=== PATIENT | male | born 1965 | race Caucasian/White ===

== ENCOUNTER 2017-09-29 23:48 | Observation (INO) | payer OTHER ==
[~2017-09-29] VITALS: Ht 175.3 cm; Wt 65.0 kg
[~2017-09-29 23:48] MED LIST: CYCL-36 PO; DIFL500T PO
[2017-09-29] MEDS ORDERED: IOHEXOL 350 MG/ML 10 ML VIAL (for RAD DIAG) IVCONTRAST ONE (23:49)
[2017-09-29 23:54] VITALS: BP 164/96; PULSE 67; RESP 15; TEMP 98.3; O2SAT 99
--- NOTE | 2017-09-30 00:10 | PD ---
HPI Chief Complaint: Fall Time Seen by Provider: 23:56 Travel History International Travel<30 days: No Contact w/Intl Traveler<30days: No Traveled to known affect area: No History of Present Illness HPI The patient is a 51 year old male who presents to the [facility] emergency department with a history of reportedly falling at work earlier today around 2 PM. The patient reports that he was up on a ladder. The patient reports that he was 3-4 steps up on a ladder and stretching to drill. He reports that he fell backwards onto his back. He denies hitting his head or losing consciousness. He denies having any numbness or tingling to his extremities. He reports that he went home from work and took BC powder. He reports that the pain became worse, therefore he called ambulance services. The patient was brought in by ambulance services in full C-spine immobilization on a backboard. He denies having any chest pain, chest pressure, or shortness of breath. He denies having any extremity injuries, however he reports that his back pain radiates down into bilateral legs down to the knees. He denies having any difficulty urinating or hematuria. He denies having any abdominal pain. On review of systems otherwise, he denies having any recent fevers, cough, congestion, vomiting, diarrhea, urinary symptoms, weakness of his extremities, difficulty with word finding ability, or facial droop. [facility] Past Medical History Narrative Medical The patient's past medical history is reportedly none. Medical History: Denies Significant Hx Past Surgical History Surgical History: No Previous Surgery Social History Alcohol Use: Yes (occasionally) Tobacco Use: Yes (one half pack per day) Substance Use: No Allergies-Medications (Allergen,Severity, Reaction): Coded Allergies: No Known Allergies (Verified Allergy, Unknown, 09/29/17) Reported Meds & Prescriptions Reported Meds & Active Scripts Active No Active Prescriptions or Reported Medications Review of Systems Except as stated in HPI: all other systems reviewed are Neg General / Constitutional: No: Fever Eyes: No: Visual changes HENT: No: Headaches Cardiovascular: No: Chest Pain or Discomfort Respiratory: No: Shortness of Breath Gastrointestinal: No: Abdominal Pain Genitourinary: No: Dysuria Musculoskeletal: Positive: Myalgias, Arthralgias, Pain Skin: No Rash Neurologic: No: Weakness, Focal Abnormalities, Change in Mentation, Slurred Speech, Sensory Disturbance Psychiatric: No: Depression Endocrine: No: Polydipsia Hematologic/Lymphatic: No: Easy Bruising Physical Exam Narrative General: The patient is a well-developed well-nourished male in no acute distress. The patient is brought in on a back board in full c-spine immobilization by emergency services. Head and Neck exam: Head is normocephalic atraumatic. No facial bone tenderness or increased facial bone mobility noted on palpation. Eyes: EOMI, pupils are equal round and reactive to light. Nose: Midline septum with pink mucous membranes Mouth: Dentition unremarkable. Moist mucus membranes. Posterior oropharynx is not erythematous. No tonsillar hypertrophy. Uvula midline. Airway patent. Neck: The patient is immobilized in a cervical collar. No tracheal deviation. The trachea appears midline. Cardiovascular: Regular rate and rhythm without murmurs, gallops, or rubs. No pulse deficit to the extremities. Lungs: Clear to auscultation bilaterally. No wheezes, rhonchi, or rales. No chest wall tenderness to palpation. No erythema or ecchymosis noted. No crepitus , step off, or flail segment noted. Abdomen: Soft, without tenderness to palpation in all 4 quadrants of the abdomen. No guarding, rebound, or rigidity. No erythema or ecchymosis noted. Extremities: No instability or pain noted on pelvic rock. No clubbing, cyanosis , or edema. 2+ pulses in all 4 extremities. No extremity tenderness or deformity noted on palpation or passive/ active range of motion. Back: The patient was log rolled off of the back board. The patient reports having spinous process tenderness from the mid thoracic spine all the way down over the sacrum. No stepoff or crepitus noted. No costovertebral angle tenderness to palpation. No erythema or ecchymosis. Neurologic Exam: Cranial nerves 2-12 were intact on exam. Strength is 5/5 in all 4 extremities. No sensory deficits noted. The patient has a positive straight leg raise bilaterally with pain in his back with raising bilateral legs. The patient specifically reports having pain in the posterior left hip with lifting his left leg. Skin Exam: No rash noted. Intact skin that is warm and dry. Data Data Last Documented VS Vital Signs Date Time Temp Pulse Resp B/P (MAP) Pulse Ox O2 Delivery O2 Flow Rate FiO2 09/29/17 23:54 98.3 67 15 164/96 (118) [address] Cerv Spine W/O Contrast (09/29/17 23:58) Ct Thor Spine W/O Contrast (09/29/17 23:58) Ct Lumb Spine W/O Contrast (09/29/17 23:58) Complete Blood Count With Diff (09/29/17 23:58) Basic Metabolic Panel (Bmp) (09/29/17 23:58) Urinalysis - C+S If Indicated (09/29/17 23:58) Chest, Single Ap (09/29/17 23:58) Pelvis, Ap Only (Routine) (09/29/17 23:58) Prothrombin Time / Inr (Pt) (09/29/17 23:58) Act Partial Throm Time (Ptt) (09/29/17 23:58) Sodium Chlor 0.9% 1000 Ml Inj (Ns 1000 M (09/30/17 01:00) Ondansetron Inj (Zofran Inj) (09/30/17 01:00) Ketorolac Inj (Toradol Inj) (09/30/17 01:00) Morphine Inj (Morphine Inj) (09/30/17 02:00) Ondansetron Inj (Zofran Inj) (09/30/17 02:00) Ct Abd/Pel W Iv Contrast(Rout) (09/30/17 02:02) Urine Culture (09/30/17 02:20) Levofloxacin 500 Mg Premix Inj (Levaquin (09/30/17 02:45) Admit Order (Ed Use Only) (09/30/17 02:46) Labs Laboratory Tests Test 09/30/17 00:12 09/30/17 02:20 White Blood Count 18.6 TH/MM3 Red Blood Count 4.24 MIL/MM3 Hemoglobin 13.8 GM/DL Hematocrit 40.1 % Mean Corpuscular Volume 94.5 FL Mean Corpuscular Hemoglobin 32.5 PG Mean Corpuscular Hemoglobin Concent 34.4 % Red Cell Distribution Width 12.9 % Platelet Count 215 TH/MM3 Mean Platelet Volume 9.0 FL Neutrophils (%) (Auto) 82.0 % Lymphocytes (%) (Auto) 7.1 % Monocytes (%) (Auto) 10.7 % Eosinophils (%) (Auto) 0.1 % Basophils (%) (Auto) 0.1 % Neutrophils # (Auto) 15.3 TH/MM3 Lymphocytes # (Auto) 1.3 TH/MM3 Monocytes # (Auto) 2.0 TH/MM3 Eosinophils # (Auto) 0.0 TH/MM3 Basophils # (Auto) 0.0 TH/MM3 CBC Comment DIFF FINAL Differential Comment Prothrombin Time 11.9 SEC Prothromb Time International Ratio 1.1 RATIO Activated Partial Thromboplast Time 25.2 SEC Blood Urea Nitrogen 18 MG/DL Creatinine 0.63 MG/DL Random Glucose 93 MG/DL Calcium Level 9.8 MG/DL Sodium Level 130 MEQ/L Potassium Level 4.3 MEQ/L Chloride Level 97 MEQ/L Carbon Dioxide Level 24.7 MEQ/L Anion Gap 8 MEQ/L Estimat Glomerular Filtration Rate 135 ML/MIN Urine Color YELLOW Urine Turbidity HAZY Urine pH 6.0 Urine Specific [place] 1.020 Urine Protein TRACE mg/dL Urine Glucose (UA) NEG mg/dL Urine Ketones NEG mg/dL Urine Occult Blood NEG Urine Nitrite POS Urine Bilirubin NEG Urine Urobilinogen 2.0 MG/DL Urine Leukocyte Esterase TRACE Urine RBC 4 /hpf Urine WBC 4 /hpf Urine Squamous Epithelial Cells <1 /hpf Urine Amorphous Sediment RARE Urine Mucus FEW /lpf Microscopic Urinalysis Comment CULTURE INDICATED MDM Medical Decision Making Medical Screen Exam Complete: Yes Emergency Medical Condition: Yes Medical Record Reviewed: Yes Interpretation(s) Last Impressions Abdomen/Pelvis CT 09/30/17201 Signed Impressions: Service Date/Time: Saturday, September 30, 2017 02:38 - CONCLUSION: 1. No acute traumatic abnormality seen in the abdomen or pelvis. 2. Benign-appearing cysts of the liver and both kidneys. 3. Upper limits of normal size spleen. 4. Several lytic areas of the bilateral iliac bones, nonspecific but most likely benign. 5. 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 Dada Herring MD Thoracic Spine CT [id number]/29/[id number] Signed Impressions: Service Date/Time: Saturday, September 30, 2017 00:35 - CONCLUSION: Intact thoracic spine. Dada Herring MD Pelvis X-Ray 09/29/[id number] Signed Impressions: Service Date/Time: Saturday, September 30, 2017 00:24 - CONCLUSION: Intact pelvis. Dada Herring MD Lumbar Spine CT [id number]/29/172357 Signed Impressions: Service Date/Time: Saturday, September 30, 2017 00:35 - CONCLUSION: 1. Intact lumbar spine. 2. Degenerative changes as above. 3. Scattered lytic areas of the visualized iliac bones, nonspecific. No similar findings are seen of the spine so malignancy such as multiple myeloma considered unlikely. Clinical correlation and outpatient whole-body bone scan suggested. Dada Herring MD Chest X-Ray 09/29/[id number] Signed Impressions: Service Date/Time: Saturday, September 30, 2017 00:26 - CONCLUSION: No evidence of acute cardiopulmonary disease. Dada Herring MD Cervical Spine CT 09/29/[id number] Signed Impressions: Service Date/Time: Saturday, September 30, 2017 00:31 - CONCLUSION: Intact cervical spine. Degenerative changes of C5/C6 and C6/C7. Dada Herring MD Differential Diagnosis Spinal fracture, versus ligamentous injury, versus musculoskeletal strain, versus radiculopathy Narrative Course During the course of the patients emergency department visit, the patients history, examination, and differential diagnosis were reviewed with the patient. The patient was placed on a cardiac cath lab manager with oximetry and frequent blood pressure monitoring. The patient had IV access obtained and blood work sent for analysis. A CT scan of the C-spine, T-spine, L-spine was ordered. The patient was initially provided Toradol 15 mg IV for pain. The patient continued to have pain and was given normal saline 1 L IV fluid bolus, Zofran 4 mg IV, morphine 4 mg IV. The patients laboratory studies were reviewed and remarkable for a white count of 18.6, hemoglobin 13.8, platelets 2:15 with 82 neutrophils, monocytes 10.7. Basic metabolic profile is remarkable for sodium of 130, chloride 97, PT 11.9, PTT 25.2, urinalysis shows positive nitrite, trace leukocyte esterase, RBCs 4, 4 WBCs, culture indicated. The patient was given Levaquin 750 mg IV 1. Radiology studies were reviewed and remarkable for CT scan of the C-spine, T- spine, L-spine showed no acute bony abnormality, however the patient is noted to have scattered lytic areas on the iliac bones bilaterally. Chest x-ray shows no acute abnormality, Pelvis x-ray shows no acute abnormality. 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 Due to intractable pain the patient will be admitted to the hospital. The patients results were discussed with the patient, including the plan of care. I explained that further testing and/ or monitoring is indicated based on the patients history, examination, and/ or laboratory findings. Therefore, I recommended admission for additional evaluation. The patient expressed understanding and was agreeable with this plan. The patient was admitted to the hospital in stable condition and sent to a bed under the care of [facility]. Physician Communication Physician Communication The patient's case including history, pertinent physical examination findings, and laboratory studies were discussed with Dr. Rivera. It was agreed that the patient would be admitted to the [facility] service. Diagnosis Primary Impression: Intractable back pain Additional Impressions: Fall Qualified Codes: W19.XXXA - Unspecified fall, initial encounter Lytic bone lesions on xray Urinary tract infection Qualified Codes: N39.0 - Urinary tract infection, site not specified; R31.9 - Hematuria, unspecified Admitting Information Admitting Physician Requests: Observation Scripts No Active Prescriptions or Reported Meds Mojgan Eldridge MD Sep 30, 2017 00:10
[2017-09-30 00:21] LABS: AUTOMATED NEUTROPHIL # 15.3 TH/MM3 (1.8-7.7); BASOPHIL % 0.1 % (0.0-2.0); EOSINOPHIL % 0.1 % (0.0-4.0); HEMATOCRIT 40.1 % (39.0-51.0); HEMO FLAGS DIFF FINAL; LYMPH % 7.1 % (9.0-44.0); LYMPHOCYTE # 1.3 TH/MM3 (1.0-4.8); MEAN CELL VOLUME 94.5 FL (80.0-100.0); MEAN CORPUSCULAR HEMOGLOBIN 32.5 PG (27.0-34.0); MEAN CORPUSCULAR HGB CONC 34.4 % (32.0-36.0); MONO % 10.7 % (0.0-8.0); PLATELET COUNT 215 TH/MM3 (150-450); RED BLOOD COUNT 4.24 MIL/MM3 (4.50-5.90); RED CELL DISTRIBUTION WIDTH 12.9 % (11.6-17.2); WHITE BLOOD COUNT 18.6 TH/MM3 (4.0-11.0)
[2017-09-30 00:35] LABS: APTT (PATIENT) 25.2 SEC (24.3-30.1); INTERNATIONAL NORMALIZED RATIO 1.1 RATIO; PROTHROMBIN TIME - PATIENT 11.9 SEC (9.8-11.6)
[2017-09-30 00:45] LABS: BICARBONATE 24.7 MEQ/L (21.0-32.0); POTASSIUM 4.3 MEQ/L (3.5-5.1)
--- NOTE | 2017-09-30 00:48 | RADRPT ---
EXAM DATE/TIME: 09/30/2017 00:24 [facility] COMPARISON: No previous studies available for comparison. INDICATIONS : Fall at work earlier today pain in back. MEDICAL HISTORY : None. SURGICAL HISTORY : None. ENCOUNTER: Initial ACUITY: 1 day PAIN SCORE: 5/10 LOCATION: Bilateral pelvis FINDINGS: A single frontal view of the pelvis demonstrates no evidence of fracture. The bony pelvic ring is in tact. Bony mineralization is normal. The soft tissues are intact. There is mild to moderate right and moderate to severe left hip ost or arthritis. CONCLUSION: Intact pelvis. Dada Herring MD on September 30, 2017 at 0:46 Board Certified Radiologist. This report was verified electronically.
--- NOTE | 2017-09-30 00:49 | RADRPT ---
EXAM DATE/TIME: 09/30/2017 00:26 [facility] COMPARISON: No previous studies available for comparison. INDICATIONS : Fall earlier today at work. Chest and back pain. MEDICAL HISTORY : None. SURGICAL HISTORY : None. ENCOUNTER: Initial ACUITY: 1 day PAIN SCORE: 0/10 LOCATION: Bilateral chest FINDINGS: A single view of the chest demonstrates the lungs to be symmetrically aerated without evidence of mas s, infiltrate or effusion. The cardiomediastinal contours are unremarkable. Osseous structures are intact. CONCLUSION: No evidence of acute cardiopulmonary disease. Dada Herring MD on September 30, 2017 at 0:47 Board Certified Radiologist. This report was verified electronically.
--- NOTE | 2017-09-30 00:56 | RADRPT ---
EXAM DATE/TIME: 09/30/2017 00:31 [facility] COMPARISON: No previous studies available for comparison. INDICATIONS : Trauma, fell from ladder. RADIATION DOSE: 32.93 CTDIvol (mGy) MEDICAL HISTORY : None SURGICAL HISTORY : None. ENCOUNTER: Initial ACUITY: 1 day PAIN SCALE: 3/10 LOCATION: thoracic TECHNIQUE: Volumetric scanning of the cervical spine was performed. Multiplanar reconstructions in the sagittal, coronal and oblique axial planes were performed. Using automated exposure control and adjustment o f the mA and/or kV according to patient size, radiation dose was kept as low as reasonably achievable to obtain optimal diagnostic quality images. DICOM format image data is available electronically f or review and comparison. FINDINGS: No fracture or subluxation of the cervical spine paravertebral bodies have normal height. Prevertebra l soft tissues are within normal limits. Moderate to severe disc space narrowing with right greater left uncovertebral and facet osteoarthriti s seen at C6/C7. There is moderate right and mild left foraminal stenosis. Similar but milder changes are seen at C5/C6 with mild bilateral foraminal stenosis. CONCLUSION: Intact cervical spine. Degenerative changes of C5/C6 and C6/C7. Dada Herring MD on September 30, 2017 at 0:51 Board Certified Radiologist. This report was verified electronically.
--- NOTE | 2017-09-30 00:59 | RADRPT ---
EXAM DATE/TIME: 09/30/2017 00:35 [facility] COMPARISON: No previous studies available for comparison. INDICATIONS : Trauma, fell from ladder. RADIATION DOSE: 33.82 CTDIvol (mGy) ; Combined studies - Thoracic Spine/Lumbar Spine MEDICAL HISTORY : None SURGICAL HISTORY : None. ENCOUNTER: Initial ACUITY: 1 day PAIN SCALE: 3/10 LOCATION: thoracic TECHNIQUE: Volumetric scanning of the thoracic spine was performed. Multiplanar reconstructions in the sagittal , coronal and oblique axial planes were performed. Using automated exposure control and adjustment o f the mA and/or kV according to patient size, radiation dose was kept as low as reasonably achievable to obtain optimal diagnostic quality images. DICOM format image data is available electronically f or review and comparison. FINDINGS: The vertebral bodies of the thoracic spine are in normal alignment without evidence of subluxation. Vertebral body height is maintained. No fractures are seen. There is very mild bilateral facet and costovertebral osteoarthritis at essentially all levels. Minim al disc space narrowing with anterior osseous ridging noted at T8/T9, T9/T10 and T10/T11. CONCLUSION: Intact thoracic spine. Dada Herring MD on September 30, 2017 at 0:55 Board Certified Radiologist. This report was verified electronically.
[2017-09-30] MEDS ORDERED: ONDANSETRON HCL 4 MG/2 ML VIAL IV ONE (01:00)
[2017-09-30] MEDS ORDERED: KETOROLAC TROMETHAMINE 30 MG/ML (IVP) VIAL IV PUSH ONE (01:00)
[2017-09-30] MEDS ORDERED: SODIUM CHLOR 0.9% 1000 ML INJ 1,000 ML IV ONE (01:00)
--- NOTE | 2017-09-30 01:07 | RADRPT ---
EXAM DATE/TIME: 09/30/2017 00:35 [facility] COMPARISON: No previous studies available for comparison. INDICATIONS : Trauma, fell from ladder. RADIATION DOSE: 33.82 CTDIvol (mGy) ; Combined studies - Thoracic Spine/Lumbar Spine MEDICAL HISTORY : None SURGICAL HISTORY : None. ENCOUNTER: Initial ACUITY: 1 day PAIN SCALE: 4/10 LOCATION: lumbar TECHNIQUE: Volumetric scanning of the lumbar spine was performed. Multiplanar reconstructions in the sagittal, coronal and oblique axial planes were performed. Using automated exposure control and adjustment of the mA and/or kV according to patient size, radiation dose was kept as low as reasonably achievable t o obtain optimal diagnostic quality images. DICOM format image data is available electronically for review and comparison. FINDINGS: No fracture or subluxation of the lumbar spine. Vertebral bodies have normal height. Moderate bilateral facet osteoarthritis seen at essentially all levels. There is severe disc space na rrowing with vacuum phenomena and a broad posterior disc protrusion at L5/S1. There is moderate left foraminal stenosis. Study shows multiple well-circumscribed lucencies of the visualized iliac bones measuring up to 12 mm in size. CONCLUSION: 1. Intact lumbar spine. 2. Degenerative changes as above. 3. Scattered lytic areas of the visualized iliac bones, nonspecific. No similar findings are seen of the spine so malignancy such as multiple myeloma considered unlikely. Clinical correlation and outpat ient whole-body bone scan suggested. Dada Herring MD on September 30, 2017 at 1:00 Board Certified Radiologist. This report was verified electronically.
[2017-09-30] MEDS ORDERED: MORPHINE SULFATE 4 MG/ML INJ IV PUSH ONE (02:00)
[2017-09-30] MEDS ORDERED: ONDANSETRON HCL 4 MG/2 ML VIAL IV PUSH ONE (02:00)
[2017-09-30 02:30] LABS: BLOOD, URINE NEG (NEG); COMMENT (UR) CULTURE INDICATED; CULTURE IF INDICATED CULTURE INDICATED; GLUCOSE,URINE NEG (NEG); KETONE, URINE NEG (NEG); MUCUS URINE FEW /lpf (OCC); NITRITE,URINE POS (NEG); SQUAMOUS EPITHELIAL CELL URINE <1 /hpf (0-5); URINE COLOR YELLOW (YELLW/STRAW)
[2017-09-30] MEDS ORDERED: LEVOFLOXACIN 500 MG PREMIX INJ 100 ML IV ONE (02:45)
[2017-09-30] MEDS ORDERED: IOHEXOL 350 MG/ML 10 ML VIAL (for RAD DIAG) IVCONTRAST ONE (02:50)
--- NOTE | 2017-09-30 03:29 | RADRPT ---
EXAM DATE/TIME: 09/30/2017 02:38 [facility] COMPARISON: CT LUMBAR SPINE W/O CONTRAST, September 30, 2017, 0:35. INDICATIONS : Trauma, fell from ladder. IV CONTRAST: 80 cc Omnipaque 350 (iohexol) IV ORAL CONTRAST: No oral contrast ingested. RADIATION DOSE: 6.64 CTDIvol (mGy) MEDICAL HISTORY : None SURGICAL HISTORY : None. ENCOUNTER: Initial ACUITY: 1 day PAIN SCALE: 6/10 LOCATION: Bilateral lower back TECHNIQUE: Volumetric scanning of the abdomen and pelvis was performed. Using automated exposure control and ad justment of the mA and/or kV according to patient size, radiation dose was kept as low as reasonably achievable to obtain optimal diagnostic quality images. DICOM format image data is available electro nically for review and comparison. FINDINGS: LOWER LUNGS: The visualized lower lungs are clear. LIVER: A couple subcentimeter cysts are seen of the liver.. There is no dilation of the biliary tree. No c alcified gallstones. SPLEEN: 7.7 x 10.8 x 13.0 cm. No laceration or focal lesion. PANCREAS: Within normal limits. KIDNEYS: 2.6 cm left mid zone cyst. There is an 8mm mid zone cyst on the right. ADRENAL GLANDS: Within normal limits. VASCULAR: There is no aortic aneurysm. BOWEL/MESENTERY: The stomach, small bowel, and colon demonstrate no acute abnormality. There is no free intraperitone al air or fluid. ABDOMINAL WALL: Within normal limits. RETROPERITONEUM: There is no lymphadenopathy. BLADDER: No wall thickening or mass. REPRODUCTIVE: Within normal limits. INGUINAL: There is no lymphadenopathy or hernia. MUSCULOSKELETAL: Visualized osseous structures are intact. A few scattered lucencies up to 12 mm in size are seen of t he visualized iliac bones. No similar findings are seen of other visualized osseous structures. Chron ic appearing avascular necrosis seen of both femoral heads with localized flattening/collapse and the re is moderate to severe bilateral hip osteoarthritis. CONCLUSION: 1. No acute traumatic abnormality seen in the abdomen or pelvis. 2. Benign-appearing cysts of the liver and both kidneys. 3. Upper limits of normal size spleen. 4. Several lytic areas of the bilateral iliac bones, nonspecific but most likely benign. 5. 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 Dada Herring MD on September 30, 2017 at 3:23 Board Certified Radiologist. This report was verified electronically.
[2017-09-30 05:53] VITALS: BP 161/78; PULSE 64; RESP 18; TEMP 98.4; O2SAT 98
[2017-09-30] MEDS ORDERED: ACETAMINOPHEN 325 MG TAB PO PRN (06:00)
[2017-09-30] MEDS ORDERED: SENNOSIDES 8.6 MG TAB PO PRN (06:00)
[2017-09-30] MEDS ORDERED: MAGNESIUM HYDROXIDE SUSP 30 ML CUP PO PRN (06:00)
[2017-09-30] MEDS ORDERED: LACTULOSE SYRUP 20 GM/30 ML CUP PO PRN (06:00)
[2017-09-30] MEDS ORDERED: ONDANSETRON HCL 4 MG/2 ML VIAL IVP PRN (06:00)
[2017-09-30] MEDS ORDERED: NALOXONE HCL 0.4 MG/ML AMP IV PUSH PRN (06:00)
[2017-09-30] MEDS ORDERED: BISACODYL 10 MG SUPP RECTAL PRN (06:00)
[2017-09-30] MEDS ORDERED: SODIUM CHLORIDE 0.9% FLUSH 10 ML FLUSH IV FLUSH PRN (06:00)
--- NOTE | 2017-09-30 06:08 | HHI.HP ---
[facility] Primary Care Physician No Primary Care Physician Admission Diagnosis intractable back pain status post fall, lytic lesions, UTI Diagnoses: Travel History International Travel<30 Days: No Contact w/Intl Traveler <30 Da: No Traveled to Known Affected Are: No History of Present Illness 51-year-old male presents to the emergency department after a fall off a ladder at work. The patient reports he was standing on a ladder when he slipped and fell approximately 3-4 feet landing directly on his back. He denies hitting his head. Denies loss of consciousness. Reports severe pain in his lower back/ sacral area. CT of the cervical, thoracic and lumbar spine with no spinal abnormalities. CT of the lumbar spine showed scattered lytic areas of the iliac bones. CT of the abdomen and pelvis showed benign-appearing cysts of the liver and both kidneys. Several lytic areas of bilateral iliac bones, nonspecific. Patient also noted to have a leukocytosis of 18.6 and a UA consistent with urinary tract infection. Patient denies dysuria. Review of Systems Denies fever or chills Denies blurry vision, otorrhea, rhinorrhea Denies sore throat and cough No chest pain, palpitations, shortness of breath No abdominal pain Denies constipation/diarrhea/nausea/vomiting Denies muscle pain/weakness No rashes Past Family Social History Past Medical History None Patient has no primary care provider and has not been seen by a physician recently Past Surgical History None Reported Medications None Allergies: Coded Allergies: No Known Allergies (Verified Allergy, Unknown, 09/29/17) Family History Denies family history of heart disease or diabetes mellitus Social History Smokes approximately one third pack per day 30 years. Occasional alcohol, occasional marijuana. Denies other illicit drugs. Physical Exam Vital Signs Vital Signs Date Time Temp Pulse Resp B/P (MAP) Pulse Ox O2 Delivery O2 Flow Rate FiO2 09/30/17 05:53 98.4 64 18 161/78 (105) 98 09/29/17 23:54 98.3 67 15 164/96 (118) 99 Physical Exam GENERAL: male lying in bed SKIN: No rashes, ecchymoses or lesions. Cool and dry. HEAD: Atraumatic. Normocephalic. No temporal or scalp tenderness. EYES: Pupils equal round and reactive. Extraocular motions intact. No scleral icterus. No injection or drainage. ENT: Nose without bleeding, purulent drainage or septal hematoma. Throat without erythema, tonsillar hypertrophy or exudate. Uvula midline. Airway patent. NECK: Trachea midline. No JVD or lymphadenopathy. Supple, nontender, no meningeal signs. CARDIOVASCULAR: Regular rate and rhythm without murmurs, gallops, or rubs. RESPIRATORY: Clear to auscultation. Breath sounds equal bilaterally. No wheezes , rales, or rhonchi. GASTROINTESTINAL: Abdomen soft, non-tender, nondistended. No hepato-splenomegaly , or palpable masses. No guarding. MUSCULOSKELETAL: Extremities without clubbing, cyanosis, or edema. No joint tenderness, effusion, or edema noted. No calf tenderness. Negative Homans sign bilaterally. Tenderness to palpation along the lumbar spine and sacrum. NEUROLOGICAL: Awake and alert. Cranial nerves II through XII intact. Motor and sensory grossly within normal limits. Five out of 5 muscle strength in all muscle groups. Normal speech. Laboratory Laboratory Tests Test 09/30/17 00:12 09/30/17 02:20 White Blood Count 18.6 Red Blood Count 4.24 Hemoglobin 13.8 Hematocrit 40.1 Mean Corpuscular Volume 94.5 Mean Corpuscular Hemoglobin 32.5 Mean Corpuscular Hemoglobin Concent 34.4 Red Cell Distribution Width 12.9 Platelet Count 215 Mean Platelet Volume 9.0 Neutrophils (%) (Auto) 82.0 Lymphocytes (%) (Auto) 7.1 Monocytes (%) (Auto) 10.7 Eosinophils (%) (Auto) 0.1 Basophils (%) (Auto) 0.1 Neutrophils # (Auto) 15.3 Lymphocytes # (Auto) 1.3 Monocytes # (Auto) 2.0 Eosinophils # (Auto) 0.0 Basophils # (Auto) 0.0 CBC Comment DIFF FINAL Differential Comment Prothrombin Time 11.9 Prothromb Time International Ratio 1.1 Activated Partial Thromboplast Time 25.2 Blood Urea Nitrogen 18 Creatinine 0.63 Random Glucose 93 Calcium Level 9.8 Sodium Level 130 Potassium Level 4.3 Chloride Level 97 Carbon Dioxide Level 24.7 Anion Gap 8 Estimat Glomerular Filtration Rate 135 Urine Color YELLOW Urine Turbidity HAZY Urine pH 6.0 Urine Specific [place] 1.020 Urine Protein TRACE Urine Glucose (UA) NEG Urine Ketones NEG Urine Occult Blood NEG Urine Nitrite POS Urine Bilirubin NEG Urine Urobilinogen 2.0 Urine Leukocyte Esterase TRACE Urine RBC 4 Urine WBC 4 Urine Squamous Epithelial Cells <1 Urine Amorphous Sediment RARE Urine Mucus FEW Microscopic Urinalysis Comment CULTURE INDICATED Date/Time Source Procedure Growth Status 09/30/17 02:20 Urine Random Urine Urine Culture Pending Received Result Diagram: 09/30/17 0012 09/30/17 0012 Caprini VTE Risk Assessment Caprini VTE Risk Assessment: No/Low Risk (score <= 1) Caprini Risk Assessment Model Point Value = 1 Point Value = 2 Point Value = 3 Point Value = 5 Age 41-60 Minor surgery BMI > 25 kg/m2 Swollen legs Varicose veins or History of unexplained or recurrent spontaneous Oral contraceptives or hormone replacement Sepsis (< 1 month) Serious lung disease, including pneumonia (< 1 month) Abnormal pulmonary function Acute myocardial infarction Congestive heart failure (< 1 month) History of inflammatory bowel disease Medical patient at bed rest Age 61-74 Arthroscopic surgery Major open surgery (> 45 min) Laparoscopic surgery (> 45 min) Malignancy Confined to bed (> 72 hours) Immobilizing plaster cast Central venous access Age >= 75 History of VTE Family history of VTE Factor V Leiden Prothrombin [id number] Lupus anticoagulant Anticardiolipin antibodies Elevated serum homocysteine Heparin-induced thrombocytopenia Other congenital or acquired thrombophilia Stroke (< 1 month) Elective arthroplasty Hip, pelvis, or leg fracture Acute spinal cord injury (< 1 month) Prophylaxis Regimen Total Risk Factor Score Risk Level Prophylaxis Regimen 0-1 Low Early ambulation 2 Moderate Order ONE of the following: *Sequential Compression Device (SCD) *Heparin 5000 units SQ BID 3-4 Higher Order ONE of the following medications: *Heparin 5000 units SQ TID *Enoxaparin/Lovenox 40 mg SQ daily (WT < 150 kg, CrCl > 30 mL/min) *Enoxaparin/Lovenox 30 mg SQ daily (WT < 150 kg, CrCl > 10-29 mL/min) *Enoxaparin/Lovenox 30 mg SQ BID (WT < 150 kg, CrCl > 30 mL/min) AND/OR *Sequential Compression Device (SCD) 5 or more Highest Order ONE of the following medications: *Heparin 5000 units SQ TID (Preferred with Epidurals) *Enoxaparin/Lovenox 40 mg SQ daily (WT < 150 kg, CrCl > 30 mL/min) *Enoxaparin/Lovenox 30 mg SQ daily (WT < 150 kg, CrCl > 10-29 mL/min) *Enoxaparin/Lovenox 30 mg SQ BID (WT < 150 kg, CrCl > 30 mL/min) AND *Sequential Compression Device (SCD) Assessment and Plan Assessment and Plan 51-year-old male presents after traumatic fall from a ladder, incidental finding on CT reveals multiple lytic lesions in the bilateral iliac bones. 1. Traumatic fall from ladder No bony abnormalities of the spine seen on cervical, thoracic and lumbar spine CTs No traumatic abnormality seen in the abdomen or pelvis CT of the abdomen/pelvis shows several lytic areas of bilateral iliac bones No lytic areas seen in the spine Oncology consulted, appreciate assistance Patient would likely benefit from whole bone body scan Percocet for pain 2. Lytic lesions Plan as above 3. UTI Urine culture pending Levaquin FEN Regular diet Electrolytes: monitor and replete prn Jasmin España MD Sep 30, 2017 06:08
[2017-09-30] MEDS: oxyCODONE/ACETAMINOPHEN 7.5 MG/325 MG TAB PO PRN ×4 (06:19→21:14)
[2017-09-30 08:01] VITALS: BP 184/86; PULSE 57; RESP 19; TEMP 98.3; O2SAT 100
[2017-09-30] MEDS: DOCUSATE SODIUM 50 MG/SENNA 8.6 MG TAB PO SCH ×2 (08:40→20:23)
[2017-09-30] MEDS: SODIUM CHLORIDE 0.9% FLUSH 10 ML FLUSH IV FLUSH SCH ×2 (08:40→20:23)
--- NOTE | 2017-09-30 09:15 | HHI.PR ---
Subjective Remarks Follow up for fall, back pain. The patient is drowsy this morning, does answer few questions then falls asleep. He reports diffuse lower back pain, denies any distal lower extremity numbness/tingling/weakness. He has no other medical complaints at this time. Objective Vitals Vital Signs Date Time Temp Pulse Resp B/P (MAP) Pulse Ox O2 Delivery O2 Flow Rate FiO2 09/30/17 08:01 98.3 57 19 184/86 (118) 100 09/30/17 06:03 09/30/17 05:53 98.4 64 18 161/78 (105) 98 09/29/17 23:54 98.3 67 15 164/96 (118) 99 Result Diagram: 09/30/17 0012 09/30/17 001 Imaging Last Impressions Abdomen/Pelvis CT 09/30/17201 Signed Impressions: Service Date/Time: Saturday, September 30, 2017 02:38 - CONCLUSION: 1. No acute traumatic abnormality seen in the abdomen or pelvis. 2. Benign-appearing cysts of the liver and both kidneys. 3. Upper limits of normal size spleen. 4. Several lytic areas of the bilateral iliac bones, nonspecific but most likely benign. 5. 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 Dada Herring MD Thoracic Spine CT 09/29/172357 Signed Impressions: Service Date/Time: Saturday, September 30, 2017 00:35 - CONCLUSION: Intact thoracic spine. Dada Herring MD Pelvis X-Ray 09/29/172357 Signed Impressions: Service Date/Time: Saturday, September 30, 2017 00:24 - CONCLUSION: Intact pelvis. Dada Herring MD Lumbar Spine CT [id number]/29/172357 Signed Impressions: Service Date/Time: Saturday, September 30, 2017 00:35 - CONCLUSION: 1. Intact lumbar spine. 2. Degenerative changes as above. 3. Scattered lytic areas of the visualized iliac bones, nonspecific. No similar findings are seen of the spine so malignancy such as multiple myeloma considered unlikely. Clinical correlation and outpatient whole-body bone scan suggested. Dada Herring MD Chest X-Ray 09/29/172357 Signed Impressions: Service Date/Time: Saturday, September 30, 2017 00:26 - CONCLUSION: No evidence of acute cardiopulmonary disease. Dada Herring MD Cervical Spine CT 09/29/17 0710 Signed Impressions: Service Date/Time: Saturday, September 30, 2017 00:31 - CONCLUSION: Intact cervical spine. Degenerative changes of C5/C6 and C6/C7. Dada Herring MD Objective Remarks GENERAL: Well-nourished, well-developed middle aged male patient in [facility]. SKIN: Warm and dry. No rash. HEENT: Normocephalic. Atraumatic.Pupils equal and round. Mucous membranes pink and moist. NECK: Supple. Trachea midline. CARDIOVASCULAR: Regular rate and rhythm. S1, S2 noted. No murmur appreciated. RESPIRATORY: No accessory muscle use. Clear to auscultation. Breath sounds equal bilaterally. GASTROINTESTINAL: Abdomen soft, non-tender, nondistended. Normoactive bowel sounds x4. MUSCULOSKELETAL: No obvious deformities. Extremities without clubbing, cyanosis , or edema. NEUROLOGICAL: Awake and alert. No obvious cranial nerve deficits. Motor grossly within normal limits. 5/5 muscle strength in bilateral upper and lower extremities. Normal speech. Medications and IVs Current Medications Medications (Trade) Dose Ordered Sig/Ernst Route Start Time Stop Time Status Last Admin (NS Flush) 2 ml UNSCH PRN IV FLUSH 09/30/17 06:00 (NS Flush) 2 ml BID IV FLUSH 09/30/17 09:00 09/30/17 08:40 (Tylenol) 650 mg Q4H PRN PO 09/30/17 06:00 (Zofran Inj) 4 mg Q6H PRN IVP 09/30/17 06:00 (Narcan Inj) 0.4 mg UNSCH PRN IV PUSH 09/30/17 06:00 (Bethany-Colace) 1 tab BID PO 09/30/17 09:00 09/30/17 08:40 (Milk Of Magnesia Liq) 30 ml Q12H PRN PO 09/30/17 06:00 (Senokot) 17.2 mg Q12H PRN PO 09/30/17 06:00 (Dulcolax Supp) 10 mg DAILY PRN RECTAL 09/30/17 06:00 (Lactulose Liq) 30 ml DAILY PRN PO 09/30/17 06:00 (Percocet 7.5-325 Mg) 1 tab Q4H PRN PO 09/30/17 06:00 09/30/17 06:19 (Levaquin) 500 mg HS PO 09/30/17 21:00 A/P Problem List: (1) Fall ICD Code: W19.XXXA - Unspecified fall, initial encounter Status: Acute (2) Intractable back pain ICD Code: M54.9 - Dorsalgia, unspecified Status: Acute (3) Lytic bone lesions on xray ICD Code: M89.9 - Disorder of bone, unspecified Status: Acute (4) Urinary tract infection ICD Code: N39.0 - Urinary tract infection, site not specified Status: Acute Assessment and Plan 51-year-old male with no significant past medical history, presents with low back pain after a fall off a ladder at work Traumatic fall from ladder with low back pain: Trauma Imaging done in the ER reviewed; C-T-L-Spine CT, pelvis xray, chest xray, showed degenerative changes however no acute bony abnormalities. -Consult PT -pain control with tylenol prn and percocet prn Lytic lesions: CT abd/pelvis shows scattered lytic area of the visualized iliac bone which are nonspecific; recommends clinical correlation and outpatient whole body bone scan suggested -Consult oncology for further recommendation -Patient would likely benefit from whole bone body scan UTI: UA with trace leuks and positive nitrites. Patient asymptomatic however elevated WBC 18.6K. -Urine culture pending -Continue empiric treatment with Levaquin until culture resulted Leukocytosis: WBC 18.6K. Afebrile. Possibly secondary to UTI vs reactive from fall. CXR clear. -given IVF -on antibiotics as above for UTI -repeat CBC Hyponatremia: Na 130. Suspect secondary to dehydration. -Given IVF with NS -Repeat BMP DVT Prophylaxis: teds/SCDs Problem Qualifiers (1) Fall: Qualified Codes: W19.XXXA - Unspecified fall, initial encounter (2) Urinary tract infection: Qualified Codes: N39.0 - Urinary tract infection, site not specified; R31.9 - Hematuria, unspecified Ivett Edmond PA-C Sep 30, 2017 9:15 am
[2017-09-30 11:39] LABS: AUTOMATED NEUTROPHIL # 12.1 TH/MM3 (1.8-7.7); BASOPHIL % 0.2 % (0.0-2.0); EOSINOPHIL % 0.1 % (0.0-4.0); HEMATOCRIT 38.5 % (39.0-51.0); HEMO FLAGS DIFF FINAL; LYMPH % 6.1 % (9.0-44.0); LYMPHOCYTE # 0.9 TH/MM3 (1.0-4.8); MEAN CELL VOLUME 94.2 FL (80.0-100.0); MEAN CORPUSCULAR HEMOGLOBIN 31.9 PG (27.0-34.0); MEAN CORPUSCULAR HGB CONC 33.9 % (32.0-36.0); MONO % 11.1 % (0.0-8.0); NEUT % 82.5 % (16.0-70.0); PLATELET COUNT 269 TH/MM3 (150-450); RED BLOOD COUNT 4.08 MIL/MM3 (4.50-5.90); RED CELL DISTRIBUTION WIDTH 13.1 % (11.6-17.2); WHITE BLOOD COUNT 14.7 TH/MM3 (4.0-11.0)
[2017-09-30 12:06] LABS: BICARBONATE 25.6 MEQ/L (21.0-32.0); POTASSIUM 3.8 MEQ/L (3.5-5.1)
[2017-09-30 12:10] LABS: BETA HCG TUMOR MARKER LESS THAN 1 MIU/ML (0-5); TOTAL PROTEIN SPE 7.7 GM/DL (6.0-7.6)
[2017-09-30 13:33] LABS: IMMUNOGLOBULIN A 456 MG/DL (93-514); IMMUNOGLOBULIN G 1770 MG/DL (660-1640); IMMUNOGLOBULIN M 529 MG/DL (40-247); KAPPA LAMBDA RATIO 1.94 (1.57-3.93); LAMBDA LIGHT CHAIN 255 MG/DL (90-210)
--- NOTE | 2017-09-30 15:26 | RADRPT ---
EXAM DATE/TIME: 09/30/2017 15:08 [place] COMPARISON: CHEST SINGLE AP, September 30, 2017, 0:26. INDICATIONS : Evaluate for lung mass IV CONTRAST: 72 cc Omnipaque 350 (iohexol) IV RADIATION DOSE: 8.94 CTDIvol (mGy) MEDICAL HISTORY : None SURGICAL HISTORY : None. ENCOUNTER: Initial ACUITY: 1 day PAIN SCALE: 0/10 LOCATION: chest TECHNIQUE: Volumetric scanning of the chest was performed. Using automated exposure control and adjustment of t he mA and/or kV according to patient size, radiation dose was kept as low as reasonably achievable to obtain optimal diagnostic quality images. DICOM format image data is available electronically for review and comparison. Follow-up recommendations for detected pulmonary nodules are based at a minimum on nodule size and pa tient risk factors according to Fleischner Society Guidelines. FINDINGS: LUNGS: 8mm calcified nodule in the anterior right upper lobe consistent with granuloma. Minimal linear paren chymal opacities at the lung base consistent with atelectasis/scarring. PLEURA: There is no pleural thickening or pleural effusion. MEDIASTINUM: Trace pericardial effusion. Coronary artery calcifications. Heart is otherwise unremarkable. No gross mediastinal or hilar adenopathy. AXILLAE: Within normal limits. No lymphadenopathy. SKELETAL: Within normal limits for patient age. No abnormal lytic or blastic bony lesions. MISCELLANEOUS: Small calcification in the left lobe of the liver. The visualized upper abdominal organs otherwise de monstrate no acute abnormality. CONCLUSION: 1. 8mm right upper lobe calcified granuloma. 2. No evidence for malignancy in the chest as questioned. 3. Trace pericardial effusion. 4. Coronary artery calcifications. Ovi Laughlin MD on September 30, 2017 at 15:17 Board Certified Radiologist. This report was verified electronically.
[2017-09-30 15:57] VITALS: BP 175/87; PULSE 59; RESP 19; TEMP 99.5; O2SAT 99
[2017-09-30 19:54] VITALS: BP 176/97; PULSE 57; RESP 18; TEMP 98.8; O2SAT 97
[2017-09-30] MEDS: LEVOFLOXACIN 500 MG TAB PO SCH (20:22)
[2017-10-01] VITALS (12 sets, daily range): BP systolic 125–188; BP diastolic 65–101; PULSE 56–87; RESP 18–20; TEMP 97.9–98.8; O2SAT 95–100
[2017-10-01] MEDS: oxyCODONE/ACETAMINOPHEN 7.5 MG/325 MG TAB PO PRN ×5 (01:30→22:58)
--- NOTE | 2017-10-01 07:16 | MB ---
cc: ENOC BECK M.D. DATE OF CONSULTATION 09/30/2017 REASON FOR CONSULTATION Consult requested by hospitalist for evaluation and management of lytic lesions in the pelvis bone. HISTORY OF PRESENT ILLNESS Dada is a 51-year-old man who is without any past medical history. He was at work and fell from the ladder and hit his back. He was brought into the emergency room as a trauma. He underwent x-rays and the CT scan. This did not show any evidence of fracture. He has a CT scan of the thoracic, lumbar, and cervical spine which failed to show any fracture. Incidentally also shows scattered lytic areas of the iliac bones nonspecific. Because of the lytic lesions, I have been asked to see him for further evaluation. The patient has been complaining of back pain. He just had received narcotic. He denies any weight loss. He denies any anorexia. He denies any nausea, vomiting, diarrhea or constipation. The rest of the rest of review of systems is negative. PAST MEDICAL HISTORY None PAST SURGICAL HISTORY None ALLERGIES None MEDICATIONS Prior to coming the hospital were none. FAMILY HISTORY Father from lung cancer with metastasis to the brain. Mother is alive, but he does not know about her health. The patient has one brother, one sister, one son, no daughters all alive and well. SOCIAL HISTORY The patient is single. Smokes cigarettes one-third of a pack every day for many years. Does not drink alcohol. He works in the [employer]. PHYSICAL EXAM This is a well-developed, well-nourished white male in no apparent distress. VITAL SIGNS: Temperature 98.3, heart rate is 57, blood pressure 184/86. HEENT: PERRLA, EOMI, anicteric. No oral lesions noted. NECK: No lymphadenopathy noted. LUNGS: Clear. No wheezing, rhonchi or rales. HEART: Regular rate and rhythm. ABDOMEN: Soft and nontender. No hepatosplenomegaly. EXTREMITIES: No pedal edema. NEUROLOGIC: Awake, alert and oriented times three. SKIN: No significant lesions noted. ASSESSMENT 1. Lytic lesions. These could be benign versus malignant. 2. Status post fall with no evidence of fracture. PLAN I have reviewed his available records and I have discussed with the patient regarding the lytic lesions in his pelvic bone. He had a CT scan of the cervical, thoracic and lumbar spine which does not show any evidence of fracture. He has an incidental finding of lytic lesions in the pelvic bone. He had a CT scan of the abdomen and pelvis which showed no acute traumatic abnormality . There are benign appearing cysts of the liver and both kidneys . The spleen is at upper limits of normal. There are several lytic areas of bilateral iliac bones nonspecific, but most likely benign per radiology. 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 My recommendation is to get a CT scan of the chest to evaluate for any lung masses as he smokes cigarettes. Certainly lung cancer can metastasized to the bone and could have lytic lesions. I will order some of the tumor markers and also order workup for myeloma. I will ask interventional radiologist for a CT-guided core needle biopsy of one of the lytic lesions to obtain tissue diagnosis. I do not recommend any bone scan as I do not think this will help in the management. Once we have a tissue diagnosis of malignancy, then we will discuss with him regarding the treatment plan. However if the biopsy comes back benign, then he could be discharged and followed up with his primary physician. Thank you for asking my opinion. MD VERA Cortez/ERNIE /2:13 AM /7:10 AM MTDKarrie
[2017-10-01] MEDS: DOCUSATE SODIUM 50 MG/SENNA 8.6 MG TAB PO SCH ×2 (08:35→21:24)
[2017-10-01] MEDS: SODIUM CHLORIDE 0.9% FLUSH 10 ML FLUSH IV FLUSH SCH ×2 (08:35→21:24)
[2017-10-01 11:48] LABS: ALBUMIN SPE 3.46 GM/DL (3.50-5.00); ALPHA 1 GLOBULIN 0.42 GM/DL (0.11-0.29); ALPHA 2 GLOBULIN 0.93 GM/DL (0.22-1.00); BETA GLOBULINS (SPE) 0.75 GM/DL (0.53-1.03)
[2017-10-01] MEDS: HYDROmorphone HCL PF 1 MG/ML VIAL IV PRN ×2 (12:34→17:26)
[2017-10-01] MEDS ORDERED: MIDAZOLAM HCL 2 MG/2 ML VIAL ONE (13:13)
[2017-10-01] MEDS ORDERED: LIDOCAINE 1%/EPINEPHrine 1:100,000 SOLN 20 ML VIAL ONE (13:24)
[2017-10-01] MEDS ORDERED: HYDROmorphone HCL PF 2 MG/ML VIAL ONE (13:42)
--- NOTE | 2017-10-01 14:24 | PD.RAD ---
Post CT Procedure Prog Note Pre Procedure Diagnosis: (1) Lytic bone lesions on xray Post Procedure Diagnosis: (1) Lytic bone lesions on xray Procedure Date: Oct 01, 2017 Supervising Radiologist: Ovi Laughlin Anesthesia: Conscious Sedation Plan of Activity Patient to Unit: ROPU Patient Condition: Good See PACS Report for procedural detail/treatment Ovi Laughlin MD Oct 01, 2017 14:24
--- NOTE | 2017-10-01 14:50 | HHI.PR ---
Subjective Remarks Complaining of pain, requesting iv pain medication Going for bone biopsy Objective Vitals Vital Signs Date Time Temp Pulse Resp B/P (MAP) Pulse Ox O2 Delivery O2 Flow Rate FiO2 10/01/17 12:13 97.9 56 20 179/90 (119) 99 10/01/17 08:30 178/93 (121) 10/01/17 07:56 98.1 62 18 96 10/01/17 04:13 98.0 66 18 182/98 (126) 95 10/01/17 03:39 18 10/01/17 00:23 97.9 66 18 173/97 (122) 97 09/30/17 19:54 98.8 57 18 176/97 (123) 97 09/30/17 15:57 99.5 59 19 175/87 (116) 99 Result Diagram: 09/30/17 1101 09/30/17 1101 Objective Remarks GENERAL: Well-nourished, well-developed middle aged male patient in [facility]. SKIN: Warm and dry. No rash. HEENT: Normocephalic. Atraumatic.Pupils equal and round. Mucous membranes pink and moist. NECK: Supple. Trachea midline. CARDIOVASCULAR: Regular rate and rhythm. S1, S2 noted. No murmur appreciated. RESPIRATORY: No accessory muscle use. Clear to auscultation. Breath sounds equal bilaterally. GASTROINTESTINAL: Abdomen soft, non-tender, nondistended. Normoactive bowel sounds x4. MUSCULOSKELETAL: No obvious deformities. Extremities without clubbing, cyanosis , or edema. NEUROLOGICAL: Awake and alert. No obvious cranial nerve deficits. Motor grossly within normal limits. 5/5 muscle strength in bilateral upper and lower extremities. Normal speech. A/P Problem List: (1) Fall ICD Code: W19.XXXA - Unspecified fall, initial encounter Status: Acute (2) Intractable back pain ICD Code: M54.9 - Dorsalgia, unspecified Status: Acute (3) Lytic bone lesions on xray ICD Code: M89.9 - Disorder of bone, unspecified Status: Acute (4) Urinary tract infection ICD Code: N39.0 - Urinary tract infection, site not specified Status: Acute Assessment and Plan 51-year-old male with no significant past medical history, presents with low back pain after a fall off a ladder at work Traumatic fall from ladder with low back pain: Trauma Imaging done in the ER reviewed; C-T-L-Spine CT, pelvis xray, chest xray, showed degenerative changes however no acute bony abnormalities. -Consult PT -pain control with tylenol prn and percocet prn Lytic lesions: CT abd/pelvis shows scattered lytic area of the visualized iliac bone which are nonspecific; recommends clinical correlation and outpatient whole body bone scan suggested -Appreciate oncology consultation, recommending bone biopsy -Per oncology patient unlikely to benefit from whole bone body scan UTI: UA with trace leuks and positive nitrites. Patient asymptomatic however elevated WBC 18.6K. which is dropped 14 K -Urine culture pending -Continue empiric treatment with Levaquin until culture resulted Leukocytosis: WBC 18.6K. Afebrile. Possibly secondary to UTI vs reactive from fall. CXR clear. -given IVF -on antibiotics as above for UTI -repeat CBC Uncontrolled hypertension - Mostly worsened with the pain - Started Norvasc 5 mg and Vasotec as needed Hyponatremia: Na 130. Suspect secondary to dehydration. -Given IVF with NS -Repeat BMP DVT Prophylaxis: teds/SCDs Problem Qualifiers (1) Fall: Qualified Codes: W19.XXXA - Unspecified fall, initial encounter (2) Urinary tract infection: Qualified Codes: N39.0 - Urinary tract infection, site not specified; R31.9 - Hematuria, unspecified Susu Foss MD Oct 01, 2017 14:50
[2017-10-01] MEDS ORDERED: ENALAPRILAT 1.25 MG/ML VIAL IV PUSH PRN (15:00)
--- NOTE | 2017-10-01 15:16 | RADRPT ---
EXAM DATE/TIME: 10/01/2017 14:01 [place] COMPARISON: No previous studies available for comparison. INDICATIONS : Lytic iliac bone lesions with concern for multiple myeloma. SEDATION TIME: 30 minutes BIOPSY SITE: Right iliac MEDICATION(S): 1.) 4 mg midazolam (Versed) IV 2.) 300 mcg fentanyl (Sublimaze) IV 3.) 1 mg hydromorphone (Dilaudid) IV DEVICE(S): 1.) 12 gauge Bone biopsy needle MEDICAL HISTORY : None. SURGICAL HISTORY : None. ENCOUNTER: Initial ACUITY: 1 day PAIN SCORE: 0/10 LOCATION: pelvis A total of one core specimen(s) were obtained and sent to the laboratory for pathologic evaluation. PROCEDURE: 1. CT guided bone deep biopsy. 2. Conscious sedation with continuous EKG and oximetry monitoring. Prior to the procedure informed consent was obtained. Any appropriate prior imaging studies were rev iewed. Using automated exposure control and adjustment of the mA and/or kV according to patient size, radiat ion dose was kept as low as reasonably achievable to obtain optimal diagnostic quality images. DICOM format image data is available electronically for review and comparison. The site was prepped in a sterile fashion. Full sterile technique was used, including cap, mask, herson rile gloves and gown and a large sterile sheet. Hand hygiene and 2% chlorhexidine and/or betadine/al cohol prep was utilized per protocol for cutaneous antisepsis. The skin and subcutaneous tissues wer e infiltrated with local anesthetic solution. With CT guidance the previously identified target was localized. Biopsy was performed using the presc ribed needle as above. Adequate hemostasis was obtained with compression at the puncture site. Follow-up CT scan reveals no hemorrhage. The patient tolerated the procedure well and there were no complications. The patient was returned to the Radiology Outpatient Unit in stable condition. CONCLUSION: Uncomplicated CT guided biopsy. Ovi Laughlin MD on October 01, 2017 at 15:13 Board Certified Radiologist. This report was verified electronically.
[2017-10-01] MEDS: amLODIPine BESYLATE 5 MG TAB PO SCH (15:54)
[2017-10-01] MEDS: LEVOFLOXACIN 500 MG TAB PO SCH (21:24)
--- NOTE | 2017-10-02 00:14 | PD.ONC.PN ---
Subjective Subjective Remarks Late entry. Patient was seen On 10/01 at 8:30am No new complaints. Objective Data Date Time Temp Pulse Resp B/P (MAP) Pulse Ox O2 Delivery O2 Flow Rate FiO2 10/01/17 23:37 98.8 71 18 150/89 (109) 96 10/01/17 20:01 98.4 82 18 125/65 (85) 97 10/01/17 18:12 87 129/78 (95) 10/01/17 16:35 98.3 68 20 188/101 (130) 98 10/01/17 15:05 82 18 176/90 (118) 98 10/01/17 14:50 79 18 160/92 (114) 100 10/01/17 14:35 98.7 80 18 168/83 (111) 99 10/01/17 12:13 97.9 56 20 179/90 (119) 99 10/01/17 08:30 178/93 (121) 10/01/17 07:56 98.1 62 18 96 10/01/17 04:13 98.0 66 18 182/98 (126) 95 10/01/17 03:39 18 10/01/17 00:23 97.9 66 18 173/97 (122) 97 Result Diagram: 09/30/17 1101 09/30/17 1101 Culture Results Microbiology Date/Time Source Procedure Growth Status 09/30/17 02:20 Urine Random Urine Urine Culture - Preliminary Staphylococcus Aureus Resulted Imaging Studies Last 24 hours Impressions Bone Biopsy CT 10/01/17 1317 Signed Impressions: Service Date/Time: Friday, October 01, 2017 14:01 - CONCLUSION: Uncomplicated CT guided biopsy. Ovi Laughlin MD Administered Medications Medications (Trade) Dose Ordered Sig/Ernst Route PRN Reason Start Time Stop Time Status Last Admin Dose Admin Sodium Chloride (NS Flush) 2 ml BID IV FLUSH 09/30/17 09:00 10/01/17 21:24 Senna/Docusate Sodium (Bethany-Colace) 1 tab BID PO 09/30/17 09:00 10/01/17 21:24 Oxycodone/ Acetaminophen (Percocet 7.5-325 Mg) 1 tab Q4H PRN PO pain 6-10 09/30/17 06:00 10/01/17 22:58 Levofloxacin (Levaquin) 500 mg HS PO 09/30/17 21:00 10/01/17 21:24 Hydromorphone HCl (Dilaudid Pf Inj) 0.2 mg Q4H PRN IV BREAKTHROUGH PAIN 10/01/17 12:30 10/01/17 17:26 Amlodipine Besylate (Norvasc) 5 mg DAILY PO 10/01/17 15:00 10/01/17 15:54 Enalaprilat (Vasotec Inj) 1.25 mg Q6H PRN IV PUSH bp>160/90 10/01/17 15:00 10/01/17 17:29 Objective Remarks GENERAL: Well-nourished, well-developed patient. SKIN: Warm and dry. HEAD: Normocephalic. EYES: No scleral icterus. No injection or drainage. NECK: Supple, trachea midline. No JVD or lymphadenopathy. LYMPHATIC: No adenopathy. CARDIOVASCULAR: Regular rate and rhythm without murmurs. RESPIRATORY: Breath sounds equal bilaterally. No accessory muscle use. GASTROINTESTINAL: Abdomen soft, non-tender, nondistended. EXTREMITIES: No cyanosis, or edema. MUSCULOSKELETAL: Adequate muscle tone. NEUROLOGICAL: No obvious focal deficit. Awake, alert, and oriented x3. PSYCHIATRIC: Appropriate mood and affect; insight and judgment normal. Assessment/Plan Problem List: (1) Lytic bone lesions on xray ICD Codes: M89.9 - Disorder of bone, unspecified Status: Acute Plan: All the tumor markers are normal. Patient is scheduled to have biopsy of lytic lesion by IR today. Patient can be discharged after the biopsy As the pathology results will take several days to come back. can be followed as out Patient for the results of the bone biopsy. Clear to discharge From my standpoint Gosia Ardon MD Oct 02, 2017 00:14
[2017-10-02 04:11] VITALS: BP 164/91; PULSE 65; RESP 18; TEMP 98; O2SAT 97
[2017-10-02] MEDS: HYDROmorphone HCL PF 1 MG/ML VIAL IV PRN (04:24)
[2017-10-02] MEDS: oxyCODONE/ACETAMINOPHEN 7.5 MG/325 MG TAB PO PRN (07:57)
[2017-10-02 08:18] VITALS: BP 189/98; PULSE 60; RESP 20; TEMP 97.8; O2SAT 95
--- NOTE | 2017-10-02 08:27 | PD.ONC.PN ---
Subjective Subjective Remarks no new c/o wants to go home. Objective Data Date Time Temp Pulse Resp B/P (MAP) Pulse Ox O2 Delivery O2 Flow Rate FiO2 10/02/17 08:18 97.8 60 20 189/98 (128) 95 10/02/17 04:11 98.0 65 18 164/91 (115) 97 10/01/17 23:37 98.8 71 18 150/89 (109) 96 10/01/17 20:01 98.4 82 18 125/65 (85) 97 10/01/17 18:12 87 129/78 (95) 10/01/17 16:35 98.3 68 20 188/101 (130) 98 10/01/17 15:05 82 18 176/90 (118) 98 10/01/17 14:50 79 18 160/92 (114) 100 10/01/17 14:35 98.7 80 18 168/83 (111) 99 10/01/17 12:13 97.9 56 20 179/90 (119) 99 10/01/17 08:30 178/93 (121) Result Diagram: 09/30/17 1101 09/30/17 1101 Culture Results Microbiology Date/Time Source Procedure Growth Status 09/30/17 02:20 Urine Random Urine Urine Culture - Final Staphylococcus Aureus Complete Imaging Studies Last 24 hours Impressions Bone Biopsy CT 10/01/17 1317 Signed Impressions: Service Date/Time: Sunday, October 01, 2017 14:01 - CONCLUSION: Uncomplicated CT guided biopsy. Ovi Laughlin MD Administered Medications Medications (Trade) Dose Ordered Sig/Ernst Route PRN Reason Start Time Stop Time Status Last Admin Dose Admin Sodium Chloride (NS Flush) 2 ml BID IV FLUSH 09/30/17 09:00 10/01/17 21:24 Senna/Docusate Sodium (Bethany-Colace) 1 tab BID PO 09/30/17 09:00 10/01/17 21:24 Oxycodone/ Acetaminophen (Percocet 7.5-325 Mg) 1 tab Q4H PRN PO pain 6-10 09/30/17 06:00 10/02/17 07:57 Levofloxacin (Levaquin) 500 mg HS PO 09/30/17 21:00 10/01/17 21:24 Hydromorphone HCl (Dilaudid Pf Inj) 0.2 mg Q4H PRN IV BREAKTHROUGH PAIN 10/01/17 12:30 10/02/17 04:24 Amlodipine Besylate (Norvasc) 5 mg DAILY PO 10/01/17 15:00 10/01/17 15:54 Enalaprilat (Vasotec Inj) 1.25 mg Q6H PRN IV PUSH bp>160/90 10/01/17 15:00 10/01/17 17:29 Objective Remarks GENERAL: Well-nourished, well-developed patient. SKIN: Warm and dry. HEAD: Normocephalic. EYES: No scleral icterus. No injection or drainage. NECK: Supple, trachea midline. No JVD or lymphadenopathy. LYMPHATIC: No adenopathy. CARDIOVASCULAR: Regular rate and rhythm without murmurs. RESPIRATORY: Breath sounds equal bilaterally. No accessory muscle use. GASTROINTESTINAL: Abdomen soft, non-tender, nondistended. EXTREMITIES: No cyanosis, or edema. MUSCULOSKELETAL: Adequate muscle tone. NEUROLOGICAL: No obvious focal deficit. Awake, alert, and oriented x3. PSYCHIATRIC: Appropriate mood and affect; insight and judgment normal. Assessment/Plan Problem List: (1) Lytic bone lesions on xray ICD Codes: M89.9 - Disorder of bone, unspecified Status: Acute Plan: 10/02/17 S/P Lytic lesion bx yesterday. Path is pending Ok to d/c FU as outpt sign off available prn. All the tumor markers are normal. Patient is scheduled to have biopsy of lytic lesion by IR today. Patient can be discharged after the biopsy As the pathology result will take several days to come back. can be followed as out Patient for the results of the bone biopsy. Clear to discharge From my standpoint Gosia Ardon MD Oct 02, 2017 08:27
[2017-10-02 08:57] VITALS: RESP 20
[2017-10-02] MEDS ORDERED: LEVA500T33 PO (09:28)
[2017-10-02] MEDS ORDERED: WALKER WHEELS/F1 MIS (09:30)
[2017-10-02] MEDS: SODIUM CHLORIDE 0.9% FLUSH 10 ML FLUSH IV FLUSH SCH (09:31)
[2017-10-02] MEDS: DOCUSATE SODIUM 50 MG/SENNA 8.6 MG TAB PO SCH (09:31)
[2017-10-02] MEDS: amLODIPine BESYLATE 5 MG TAB PO SCH (09:31)
[2017-10-02] MEDS ORDERED: AMLO5 PO (09:34)
[2017-10-02] MEDS ORDERED: OXYC1TAB35 PO (09:35)
--- NOTE | 2017-10-02 14:04 | HHI.DS ---
Discharge Summary Admission Date Sep 30, 2017 at 02:49 Discharge Date: Oct 02, 2017 Admitting Diagnosis intractable back pain status post fall, lytic lesions, UTI (1) Fall ICD Code: W19.XXXA - Unspecified fall, initial encounter Status: Acute (2) Intractable back pain ICD Code: M54.9 - Dorsalgia, unspecified Status: Acute (3) Lytic bone lesions on xray ICD Code: M89.9 - Disorder of bone, unspecified Status: Acute (4) Urinary tract infection ICD Code: N39.0 - Urinary tract infection, site not specified Status: Acute Procedures Bone biopsy Brief History - From Admission 51-year-old male presents to the emergency department after a fall off a ladder at work. The patient reports he was standing on a ladder when he slipped and fell approximately 3-4 feet landing directly on his back. He denies hitting his head. Denies loss of consciousness. Reports severe pain in his lower back/ sacral area. CT of the cervical, thoracic and lumbar spine with no spinal abnormalities. CT of the lumbar spine showed scattered lytic areas of the iliac bones. CT of the abdomen and pelvis showed benign-appearing cysts of the liver and both kidneys. Several lytic areas of bilateral iliac bones, nonspecific. Patient also noted to have a leukocytosis of 18.6 and a UA consistent with urinary tract infection. Patient denies dysuria. CBC/BMP: 09/30/17 1101 09/30/17 1101 Significant Findings Laboratory Tests Test 09/30/17 00:12 09/30/17 02:20 09/30/17 11:01 White Blood Count 18.6 TH/MM3 (4.0-11.0) 14.7 TH/MM3 (4.0-11.0) Red Blood Count 4.24 MIL/MM3 (4.50-5.90) 4.08 MIL/MM3 (4.50-5.90) Neutrophils (%) (Auto) 82.0 % (16.0-70.0) 82.5 % (16.0-70.0) Lymphocytes (%) (Auto) 7.1 % (9.0-44.0) 6.1 % (9.0-44.0) Monocytes (%) (Auto) 10.7 % (0.0-8.0) 11.1 % (0.0-8.0) Neutrophils # (Auto) 15.3 TH/MM3 (1.8-7.7) 12.1 TH/MM3 (1.8-7.7) Monocytes # (Auto) 2.0 TH/MM3 (0-0.9) 1.6 TH/MM3 (0-0.9) Prothrombin Time 11.9 SEC (9.8-11.6) Sodium Level 130 MEQ/L (136-145) 131 MEQ/L (136-145) Chloride Level 97 MEQ/L (98-107) 97 MEQ/L (98-107) Urine Turbidity HAZY (CLEAR) Urine Nitrite POS (NEG) Urine Leukocyte Esterase TRACE (NEG) Urine RBC 4 /hpf (0-3) Urine Mucus FEW /lpf (OCC) Hematocrit 38.5 % (39.0-51.0) Lymphocytes # (Auto) 0.9 TH/MM3 (1.0-4.8) Blood Urea Nitrogen 20 MG/DL (7-18) Total Protein 7.7 GM/DL (6.0-7.6) Albumin 3.46 GM/DL (3.50-5.00) Albumin/Globulin Ratio 0.81 (1.39-2.23) Tmzxp-[id number] 0.42 GM/DL (0.11-0.29) Gamma Globulins 2.15 GM/DL (0.50-1.39) Immunoglobulin G Total 1770 MG/DL (660-1640) Immunoglobulin M 529 MG/DL (40-247) [place] Light Chain Analysis 495 MG/DL (170-370) Lambda Light Chain Analysis 255 MG/DL (90-210) PE at Discharge GENERAL: Well-nourished, well-developed middle aged male patient in [facility]. SKIN: Warm and dry. No rash. HEENT: Normocephalic. Atraumatic.Pupils equal and round. Mucous membranes pink and moist. NECK: Supple. Trachea midline. CARDIOVASCULAR: Regular rate and rhythm. S1, S2 noted. No murmur appreciated. RESPIRATORY: No accessory muscle use. Clear to auscultation. Breath sounds equal bilaterally. GASTROINTESTINAL: Abdomen soft, non-tender, nondistended. Normoactive bowel sounds x4. MUSCULOSKELETAL: No obvious deformities. Extremities without clubbing, cyanosis , or edema. NEUROLOGICAL: Awake and alert. No obvious cranial nerve deficits. Motor grossly within normal limits. 5/5 muscle strength in bilateral upper and lower extremities. Normal speech. Hospital Course 51-year-old male with no significant past medical history, presents with low back pain after a fall off a ladder at work Traumatic fall from ladder with low back pain: Trauma Imaging done in the ER reviewed; C-T-L-Spine CT, pelvis xray, chest xray, showed degenerative changes however no acute bony abnormalities. Lytic lesions: CT abd/pelvis shows scattered lytic area of the visualized iliac bone which are nonspecific; recommends clinical correlation and outpatient whole body bone scan suggested Oncology consulted recommended bone biopsy, which has been done and cleared for discharge to follow up with oncology as an outpatient Patient had UTI shown on UA with trace leuks and positive nitrites. Patient asymptomatic however elevated WBC 18.6K. which is dropped 14 K Started on Levaquin, also had Uncontrolled hypertension for which she was started on Norvasc 5 mg increased to 10 at discharge 4 better optimization Snab-mi-dhns encounter performed with the patient on discharge day, as well as physical exam, summary of hospitalization course and postdischarge plan has been D/W the patient. D/W nurse D/W continuous pillowcase cutter. Discharge medications reviewed and printed and signed, post discharge follow up visit with PCP and other specialist as well as Brief hospital course and discharge summary has been placed. P Pt Condition on Discharge: Fair Discharge Disposition: Discharge Home Discharge Time: > 30 minutes Discharge Instructions DIET: Follow Instructions for: Heart Healthy Diet Activities you can perform: Weight Bearing as Liz, See Additionl Instruction Other Activity Instructions: fall precaution Follow up Referrals: Oncology - 1 Week with Gosia Ardon MD New Medications: Walker with Front Wheels (Walker with Front Wheels) 1 Mis Mis EA .ROUTE DIRECTED for weakness, #1 0 Refills Amlodipine (Norvasc) 5 Mg Tab 10 MG PO DAILY for htn, #30 TAB Levofloxacin (Levaquin) 500 Mg Tablet 500 MG PO HS for uti, #5 TAB Oxycodone HCl/Acetaminophen (Oxycodon-Acetaminophen 7.5-325) 7.5 Mg-325 Mg Tablet 1 TAB PO Q4H PRN for pain, #10 TAB Susu Foss MD Oct 02, 2017 14:04
[2017-10-04 03:50] LABS: KAPPA/LAMBDA FREE 1.28 (0.26-1.65)
== END 2017-10-02 11:10 | disposition home or self-care (01) ==
LOC: NEPC 23:48 → NEDA 09-30 02:49 → NEPFCDU 09-30 05:51
PROVIDERS: ADMIT Hospitalist; ATTEND Hospitalist
DX: M54.5 Low back pain (principal); N39.0 Urinary tract infection, site not specified; K76.89 Other specified diseases of liver; M89.9 Disorder of bone, unspecified; I25.10 Atherosclerotic heart disease of native coronary artery without angina pectoris; I10 Essential (primary) hypertension; M16.0 Bilateral primary osteoarthritis of hip; F17.210 Nicotine dependence, cigarettes, uncomplicated; W11.XXXA Fall on and from ladder, initial encounter; Y99.0 Civilian activity done for income or pay
CPT/HCPCS: 20225; 71010; 71260; 72125; 72128; 72131; 72170; 74177; 77012; 80048; 81001; 82105; 82378; 82784; 82948; 83883; 84153; 84165; 84702; 85025; 85610; 85730; 86301; 86334; 86403; 87086; 87186; 88307; 88311; 96361; 96365; 96374; 96375; 96376; 97162; 99152; 99153; 99285; G0378; G8987; G8988; J1170; J1885; J1956; J2250; J2270; J2405; J3010; J7030; Q9967; 88305